=== PATIENT | female | born 1975 | race Two or more races ===

== ENCOUNTER 2024-05-20 19:51 | Inpatient (IN) | payer OTHER ==
[~2024-05-20] VITALS: Ht 149.9 cm; Wt 68.0 kg
[2024-05-20 23:43] LABS: BASOPHILS % (AUTO) 0.3 % (0.0-2.0); EOSINOPHILS % (AUTO) 0.4 % (1.0-6.0); HEMATOCRIT 38.8 % (36-46); HEMOGLOBIN 12.9 g/dL (12.0-16.0); LYMPHOCYTES # (AUTO) 2.2 K/uL (1.0-4.8); LYMPHOCYTES % (AUTO) 20.6 % (22.0-44.0); MEAN CORPUSCULAR HEMOGLOBIN 30.3 pg (26.0-34.0); MEAN CORPUSCULAR HGB CONC 33.2 G/dL (31.0-37.0); MEAN CORPUSCULAR VOLUME 91 fL (80-100); MONOCYTES # (AUTO) 0.6 K/uL (0.1-1.0); MONOCYTES % (AUTO) 5.6 % (2.0-9.0); NEUTROPHILS # (AUTO) 7.7 K/uL (1.8-7.7); NEUTROPHILS % (AUTO) 73.1 % (40.0-70.0); PLATELET COUNT (AUTO) 244 K/uL (150-450); RED BLOOD CELL COUNT(AUTO) 4.25 MIL/uL (4.00-5.20); RED CELL DISTRIBUTION WIDTH 13.6 % (11.5-14.5); WHITE BLOOD COUNT (AUTO) 10.6 K/uL (4.5-11.0)
[2024-05-20 23:58] LABS: ANION GAP 11 mmol/L (8-16); CALCIUM, TOTAL 9.4 mg/dL (8.8-10.5); CARBON DIOXIDE 25 mmol/L (22-29); CHLORIDE 104 mmol/L (98-107); CREATININE 0.89 mg/dL (0.60-1.30); GLOMERULAR FILTR. RATE CALC > 60 mL/min (>60); GLUCOSE,RANDOM 134 mg/dL (70-110); POTASSIUM 4.2 mmol/L (3.5-5.1); SODIUM SERUM 140 mmol/L (136-145); UREA NITROGEN, BLOOD 13 mg/dL (7-18)
[2024-05-20 23:59] LABS: APPEARANCE,URINE CLEAR (CLEAR); BILIRUBIN,URINE NEGATIVE (NEGATIVE); COLOR,URINE COLORLESS (YELLOW); GLUCOSE, URINE (UA) NEGATIVE (NEGATIVE); KETONES,URINE NEGATIVE (NEGATIVE); LEUKOCYTE ESTERASE ,URINE NEGATIVE (NEGATIVE); NITRATE,URINE NEGATIVE (NEGATIVE); OCCULT BLOOD,URINE TRACE (NEGATIVE); PROTEIN,URINE NEGATIVE (NEGATIVE); SPECIFIC GRAVITIY, URINE 1.008 (1.003-1.030); UROBILINOGEN,URINE <=1.0 mg/dL (<=1.0)
[2024-05-21] LABS: TROPONIN I-HIGH SENSITIVITY 5 ng/L (<51)
[2024-05-21 00:03] LABS: ALANINE AMINOTRANSFERASE 160 U/L (12-78); ALKALINE PHOSPHATASE 117 U/L (46-116); ASPARTATE AMINOTRANSFERASE 340 U/L (15-37); BILIRUBIN,TOTAL 0.7 mg/dL (0.1-1.0); TOTAL PROTEIN, SERUM 7.7 g/dL (6.4-8.2)
[2024-05-21 00:09] LABS: BACTERIA,URINE None Seen /HPF (None Seen); RBC,URINE 0-2 /HPF (0-2); SQUAMOUS EPITHELIAL CELL,UR Few /LPF (None Seen); WBC,URINE None Seen /HPF (0-5)
[2024-05-21 00:12] LABS: LIPASE 470 U/L (16-77)
[2024-05-21] MEDS: ASPIRIN 325 MG TABLET PO ONE (00:31)
[2024-05-21] MEDS: FAMOTIDINE 20 MG/2 ML VIAL IVP ONE (00:31)
[2024-05-21] MEDS: SODIUM CHLORIDE 0.9% 1,000 ML IV ONE ×2 (00:31→01:44)
[2024-05-21] MEDS ORDERED: MAGNESIUM HYDROXIDE SUSPENSION 30 ML UDCUP PO PRN (01:15)
[2024-05-21] MEDS ORDERED: MORPHINE SULFATE 2 MG/ML SYRINGE IVP PRN (01:15)
[2024-05-21] MEDS ORDERED: ACETAMINOPHEN 325 MG TABLET PO PRN (01:15)
[2024-05-21] MEDS ORDERED: ONDANSETRON HCL 4 MG/2 ML VIAL IVP PRN (01:15)
[2024-05-21] MEDS: PIPERACILLIN/TAZO 3.375 GM/D5W 50 ML IV SCH (02:13)
[2024-05-21 05:28] VITALS: BP 134/77; PULSE 66; RESP 18; TEMP 98.2; O2SAT 98
[2024-05-21 08:35] VITALS: BP 112/73; PULSE 67; RESP 20; TEMP 97.8; O2SAT 99
[2024-05-21] MEDS: PANTOPRAZOLE SODIUM 40 MG/VIAL IVP SCH (08:53)
[2024-05-21] MEDS: DOCUSATE SODIUM 100 MG CAPSULE PO SCH (08:53)
[2024-05-21 20:24] VITALS: BP 114/66; PULSE 73; RESP 18; TEMP 98; O2SAT 97
[2024-05-22] MEDS ORDERED: SODIUM CL IRRIG SOLN BAG 3,000 ML IRRIG ONE (08:04)
[2024-05-22 08:15] LABS: ALBUMIN 3.2 g/dL (3.4-5.0); BILIRUBIN,TOTAL 0.7 mg/dL (0.1-1.0); CALCIUM, TOTAL 8.3 mg/dL (8.8-10.5); CREATININE 1.12 mg/dL (0.60-1.30); POTASSIUM 3.8 mmol/L (3.5-5.1); TOTAL PROTEIN, SERUM 6.5 g/dL (6.4-8.2)
[2024-05-22 11:06] VITALS: BP 110/69; PULSE 69; RESP 17; TEMP 98.4; O2SAT 98
[2024-05-22] MEDS ORDERED: MIDAZOLAM HCL 2 MG/2 ML VIAL IVP ONE (12:00)
[2024-05-22] MEDS ORDERED: MORPHINE SULFATE/PF 0.5 MG/ML 10 ML AMP IVP ONE (12:00)
[2024-05-22] MEDS ORDERED: FentaNYL CITRATE PF 100 MCG/2 ML VIAL IVP ONE (12:00)
[2024-05-22] MEDS ORDERED: OxyCODONE HCL 5 MG IR TABLET PO PRN (13:00)
[2024-05-22] MEDS ORDERED: MEPERIDINE-PF 25 MG/ML VIAL IVP PRN (13:45)
[2024-05-22] MEDS ORDERED: FentaNYL CITRATE PF 100 MCG/2 ML VIAL ONE (13:45)
[2024-05-22] MEDS ORDERED: HYDROmorphone HCL 2 MG/ML SYRINGE IVP PRN (13:45)
[2024-05-22] MEDS: FentaNYL CITRATE PF 100 MCG/2 ML VIAL IVP PRN (13:47)
[2024-05-22] MEDS: BUPIVACAINE 0.25%/EPI 1:200,000/PF 30 ML VIAL ONE (14:21)
[2024-05-22] MEDS: IOHEXOL 240 MG/ML 20 ML VIAL ONE (14:21)
[2024-05-22] MEDS: ACETAMINOPHEN 500 MG TABLET PO SCH (15:52)
[2024-05-22] MEDS: IBUPROFEN 600 MG TABLET PO SCH (15:52)
[2024-05-22 15:54] VITALS: BP 121/78; PULSE 68; RESP 16; TEMP 98.2; O2SAT 98
[2024-05-22] MEDS: OXYGEN THERAPY IH SCH (20:00)
[2024-05-22 20:12] VITALS: BP 116/73; PULSE 79; RESP 17; TEMP 98.3; O2SAT 96
[2024-05-23 08:43] VITALS: BP 114/66; PULSE 68; RESP 18; TEMP 98.2; O2SAT 96
[2024-05-23] MEDS ORDERED: ACET-3385 PO (11:03)
[2024-05-23] MEDS ORDERED: MAGN-169 PO (11:04)
== END 2024-05-23 16:46 | DRG 419 ==
LOC: EMS 19:51 → EDH 05-21 01:19 → 6S 05-21 05:16
PROVIDERS: ADMIT Internal Medicine; ATTEND Internal Medicine
PROC: 0FT44ZZ Resection of Gallbladder, Percutaneous Endoscopic Approach (ICD-10-PCS; principal; 2024-05-21)
PROC: BF121ZZ Fluoroscopy of Gallbladder using Low Osmolar Contrast (ICD-10-PCS; 2024-05-21)
DX: K85.10 Biliary acute pancreatitis without necrosis or infection (principal); Z68.30 Body mass index [BMI] 30.0-30.9, adult; K80.20 Calculus of gallbladder without cholecystitis without obstruction; E66.9 Obesity, unspecified; K76.0 Fatty (change of) liver, not elsewhere classified
CPT/HCPCS: 76705; 80048; 80053; 80076; 81001; 83690; 84484; 84703; 85025; 87040; 87081; 93005; 99285; C9113; G0238; J2250; J2274; J2543; J3010; J3490; J7030; Q9966